=== PATIENT | female | born 1940 | race Caucasian/White ===

== ENCOUNTER 2016-11-14 18:43 | Emergency (ER) | payer MEDICARE, OTHER ==
[~2016-11-14] VITALS: Ht 167.6 cm; Wt 77.0 kg
--- NOTE | 2016-11-14 18:49 | ED.ADGEN ---
Past History Past Medical History: Cancer, Diabetes, Other Adult General Chief Complaint Chief Complaint I been hurting... Down here on the left.. alll day..." HPI HPI Patient is a 76 year old female who presents with above hx and complaints Lt. lower quadrant abd. pain. History of bad food. Normally she did travel. No history of trauma. No change in bowel movements. Patient normally follows with . She is status post right breast cancer treatment 12 years with no recurrence. Review of Systems Review of Systems Constitutional: Denies fever or chills [] Eyes: Denies change in visual acuity, redness, or eye pain [] HENT: Denies nasal congestion or sore throat [] Respiratory: Denies cough or shortness of breath [] Cardiovascular: No additional information not addressed in HPI [] GI: Complains of abdominal pain, nausea, pain localized left lower quadrant : Denies dysuria or hematuria [] Musculoskeletal: Denies back pain or joint pain [] Integument: Denies rash or skin lesions [] Neurologic: Denies headache, focal weakness or sensory changes [] Endocrine: Denies polyuria or polydipsia [] Family History Family History Noncontributory Current Medications Current Medications Current Medications Medications (Trade) Dose Ordered Sig/Ney Start Time Stop Time Status Last Admin Dose Admin Ceftriaxone Sodium/Sodium Chloride (Rocephin/Iv Sodium Chloride 0.9% 50ml) 50 ml @ 100 mls/hr 1X ONCE 11/14/16 21:15 11/14/16 21:44 DC 11/14/16 21:34 100 MLS/HR Ceftriaxone Sodium (Rocephin) 1 gm STK-MED ONCE 11/14/16 21:22 11/14/16 21:23 DC Famotidine (Pepcid) 20 mg 1X ONCE 11/14/16 19:15 11/14/16 19:16 DC 11/14/16 19:22 20 MG Info (Do NOT chart on this entry -- for MONITORING) 1 each PRN DAILY PRN 11/14/16 19:15 11/14/16 22:15 DC Iohexol (Omnipaque 240 Mg/ml) 30 ml 1X ONCE 11/14/16 19:15 11/14/16 19:16 DC 11/14/16 20:40 30 ML Iohexol (Omnipaque 300 Mg/ml) 75 ml 1X ONCE 11/14/16 19:15 11/14/16 19:16 DC 11/14/16 20:41 75 ML Lactated Ringer's (Iv Lactated Ringers) 1,000 ml @ 1,000 mls/hr Q1H 11/14/16 19:00 11/14/16 22:15 DC 11/14/16 19:22 1,000 MLS/HR Levofloxacin (Levaquin) 500 mg 1X ONCE 11/14/16 22:00 11/14/16 22:01 DC 11/14/16 21:59 500 MG Magnesium Hydroxide 2400 mg 2,400 mg 1X ONCE 11/14/16 20:00 11/14/16 20:01 DC 11/14/16 20:00 2,400 MG Morphine Sulfate (Morphine 10mg Syringe) 10 mg 1X ONCE 11/14/16 19:15 11/14/16 19:16 DC 11/14/16 19:17 10 MG Morphine Sulfate 10 mg 10 mg 1X ONCE 11/14/16 21:15 11/14/16 21:16 DC Ondansetron HCl (Zofran) 8 mg 1X ONCE 11/14/16 19:15 11/14/16 19:16 DC 11/14/16 19:19 8 MG Sodium Chloride (Iv Sodium Chloride 0.9% 50ml) 50 ml @ As Directed STK-MED ONCE 11/14/16 21:22 11/14/16 21:23 DC Allergies Allergies Allergies Coded Allergies Type Severity Reaction Last Updated Verified ibuprofen Allergy Unknown 11/14/16 Yes Physical Exam Physical Exam Constitutional: in acute distress, non-toxic appearance. [] HENT: Normocephalic, atraumatic, bilateral external ears normal, oropharynx moist, no oral exudates, nose normal. Dentures Eyes: PERRLA, EOMI, conjunctiva normal, no discharge. Neck: Normal range of motion, no tenderness, supple, no stridor. [] Cardiovascular: Tachycardia Heart rate regular rhythm, no murmur [] Lungs & Thorax: Bilateral breath sounds clear to auscultation Surgery right breast cancer scar. Crackles Lt. lower posterior field. Abdomen: Bowel sounds decreased, soft, floor tenderness, no masses, no pulsatile masses. Very mild left lower rebound. Refused rectal at this time. Skin: Warm, dry, no erythema, no rash. [] Back: No tenderness, no CVA tenderness. [] Extremities: No tenderness, no cyanosis, no clubbing, ROM intact, no edema. No true psoas or obturator Neurologic: Alert and oriented X 3, normal motor function, normal sensory function, no focal deficits noted. [] Psychologic: Affect anxious, judgement normal, mood normal. [] Current Patient Data Vital Signs Vital Signs Date Time Temp Pulse Resp B/P Pulse Ox O2 Delivery O2 Flow Rate FiO2 11/14/16 19:00 98.5 112 20 150/61 96 Room Air Lab Results Laboratory Tests Test 11/14/16 19:07 11/14/16 20:15 White Blood Count 9.9x10^3/uL (4.0-11.0) Red Blood Count 4.58x10^6/uL (3.50-5.40) Hemoglobin 13.6g/dL (12.0-15.5) Hematocrit 40.5% (36.0-47.0) Mean Corpuscular Volume 88fL (79-100) Mean Corpuscular Hemoglobin 30pg (25-35) Mean Corpuscular Hemoglobin Concent 34g/dL (31-37) Red Cell Distribution Width 14.5% (11.5-14.5) Platelet Count 281x10^3/uL (140-400) Neutrophils (%) (Auto) 63% (31-73) Lymphocytes (%) (Auto) 27% (24-48) Monocytes (%) (Auto) 6% (0-9) Eosinophils (%) (Auto) 3% (0-3) Basophils (%) (Auto) 1% (0-3) Neutrophils # (Auto) 6.2x10^3uL (1.8-7.7) Lymphocytes # (Auto) 2.7x10^3/uL (1.0-4.8) Monocytes # (Auto) 0.6x10^3/uL (0.0-1.1) Eosinophils # (Auto) 0.3x10^3/uL (0.0-0.7) Basophils # (Auto) 0.1x10^3/uL (0.0-0.2) Prothrombin Time 10.1SEC (9.4-11.4) Prothrombin Time INR 1.0 (0.9-1.1) PTT 23SEC (23-33) Sodium Level 139mmol/L (136-145) Potassium Level 3.7mmol/L (3.5-5.1) Chloride Level 100mmol/L (98-107) Carbon Dioxide Level 27mmol/L (21-32) Anion Gap 12 (6-14) Blood Urea Nitrogen 32mg/dL (7-20) H Creatinine 1.2mg/dL (0.6-1.0) H Estimated GFR (Cockcroft-Gault) 43.8 Glucose Level 155mg/dL (70-99) H Calcium Level 10.5mg/dL (8.5-10.1) H Total Bilirubin 0.4mg/dL (0.2-1.0) Direct Bilirubin 0.1mg/dL (0.0-0.2) Aspartate Amino Transferase (AST) 19U/L (15-37) Alanine Aminotransferase (ALT) 31U/L (14-59) Alkaline Phosphatase 93U/L (46-116) Creatine Kinase 96U/L (26-192) Troponin I Quantitative < 0.017ng/mL (0-0.055) Total Protein 7.7g/dL (6.4-8.2) Albumin 3.9g/dL (3.4-5.0) Amylase Level 40U/L (25-115) Lipase 149U/L (73-393) Urine Collection Type Unknown Urine Color Yellow Urine Clarity Hazy Urine pH 5.5 Urine Specific Ferdinand 1.010 Urine Protein Neg (NEG-TRACE) Urine Glucose (UA) Negmg/dL (NEG) Urine Ketones (Stick) Negmg/dL (NEG) Urine Blood Neg (NEG) Urine Nitrite Neg (NEG) Urine Bilirubin Neg (NEG) Urine Urobilinogen Dipstick 0.2mg/dL (0.2 mg/dL) Urine Leukocyte Esterase Small (NEG) Urine RBC 0/HPF (0-2) Urine WBC 1-4/HPF (0-4) Urine Squamous Epithelial Cells None/LPF Urine Bacteria 0/HPF (0-FEW) EKG EKG My interpretation EKG shows a sinus tachycardia at 108 bpm. No findings acute STEMI with contralateral changes. [] Radiology/Procedures Radiology/Procedures I interpretation of abdomen film shows increased stool. Nonspecific pattern. No free air in the diaphragm. Has some atelectasis or infiltrate left lower lung field .[] CT shows no acute surgical process. Course & Med Decision Making Course & Med Decision Making Pertinent Labs and Imaging studies reviewed. (See chart for details) Pt. to stay on clear fluid diet only x48 hrs. No solids or milk products. Zofran 8 up 4 x day for nausea and vomiting. Take Levaquin 500 a day x 5 days. Re-exam if no improvement. Must follow up with primary. Return if any concerns. [] Final Impression Final Impression 1. Abdomen pain []-left lower quadrant 2. Elevated Glucose-155 3. Dehydration 4. Elevated creat. and BUN Problems: Dragon Disclaimer Dragon Disclaimer This electronic medical record was generated, in whole or in part, using a voice recognition dictation system. SUSANA LEONARDO MD Nov 14, 2016 18:49
[2016-11-14] MEDS ORDERED: IV RINGERS SOLUTION,LACTATED 1,000 ML IV SCH (19:00)
[2016-11-14] MEDS ORDERED: IOHEXOL 300 MG/ML 75 ML VIAL. IV ONE (19:15)
[2016-11-14] MEDS ORDERED: MORPHINE SULFATE 10 MG/ML SYRINGE. SQ ONE ×3 (19:15→21:15)
[2016-11-14] MEDS ORDERED: ONDANSETRON PF 4 MG/2 ML VIAL. IV ONE (19:15)
[2016-11-14] MEDS ORDERED: IOHEXOL 240 MG/ML 50ML VIAL. PO ONE (19:15)
[2016-11-14] MEDS ORDERED: CONTRAST GIVEN MC PRN (19:15)
[2016-11-14] MEDS ORDERED: FAMOTIDINE 20 MG/2 ML VIAL IVP ONE (19:15)
[2016-11-14 19:27] LABS: BASO # 0.1 x10^3/uL (0.0-0.2); BASO % 1 % (0-3); EOS # 0.3 x10^3/uL (0.0-0.7); EOS % 3 % (0-3); HEMATOCRIT 40.5 % (36.0-47.0); HEMOGLOBIN 13.6 g/dL (12.0-15.5); LYMPH # 2.7 x10^3/uL (1.0-4.8); LYMPH % 27 % (24-48); MEAN CORPUSCULAR HEMOGLOBIN 30 pg (25-35); MEAN CORPUSCULAR HGB CONC 34 g/dL (31-37); MEAN CORPUSCULAR VOLUME 88 fL (79-100); MONO # 0.6 x10^3/uL (0.0-1.1); MONO % 6 % (0-9); NEUT # 6.2 x10^3uL (1.8-7.7); NEUT % 63 % (31-73); PLATELET COUNT 281 x10^3/uL (140-400); RED BLOOD COUNT 4.58 x10^6/uL (3.50-5.40); RED CELL DISTRIBUTION WIDTH 14.5 % (11.5-14.5); WHITE BLOOD COUNT 9.9 x10^3/uL (4.0-11.0)
[2016-11-14 19:38] LABS: ALBUMIN 3.9 g/dL (3.4-5.0); CALCIUM 10.5 mg/dL (8.5-10.1); CREATININE 1.2 mg/dL (0.6-1.0); DIRECT BILIRUBIN 0.1 mg/dL (0.0-0.2); GFR 43.8; POTASSIUM 3.7 mmol/L (3.5-5.1); TOTAL BILIRUBIN 0.4 mg/dL (0.2-1.0); TOTAL PROTEIN 7.7 g/dL (6.4-8.2)
[2016-11-14] MEDS ORDERED: MAGNESIUM HYDROXIDE 2,400 MG/30 ML ORAL.SUSP. PO ONE (20:00)
[2016-11-14 20:34] LABS: BACTERIA,URINE 0 /HPF (0-FEW); BILIRUBIN,URINE NEG (NEG); CLARITY,URINE HAZY; COLOR,URINE YELLOW; GLUCOSE,URINE NEG (NEG); NITRITE,URINE NEG (NEG); RBC,URINE 0 /HPF (0-2); UROBILINOGEN,URINE 0.2 mg/dL (0.2 mg/dL)
[2016-11-14] MEDS ORDERED: CEFTRIAXONE SODIUM 1 GM in IV NORMAL SALINE 50ML 50 ML IV ONE (21:15)
[2016-11-14] MEDS ORDERED: CEFTRIAXONE SODIUM 1 GM VIAL IV ONE (21:22)
[2016-11-14] MEDS ORDERED: IV NORMAL SALINE 50ML 50 ML ONE (21:22)
--- NOTE | 2016-11-14 21:23 | RAD ---
PROCEDURE CT abdomen pelvis with contrast. HISTORY Severe left-sided abdominal pain and constipation x2 days. History of breast cancer in 2004. TECHNIQUE Helical CT imaging of the abdomen and pelvis is performed after oral contrast and 60 cc Omnipaque 300 IV contrast. PQRS: One or more the following individualized dose reduction techniques were utilized for the study: 1. Automated exposure control. 2. Adjustment of the mA and/or kV according to patient size. 3. Use of iterative reconstruction technique. COMPARISON None. FINDINGS There is moderate atelectasis or scarring in the lung bases. There are coarse calcifications in the right breast. There is coronary artery disease. Cardiac size normal. Liver, gallbladder, spleen, pancreas, and adrenal glands are normal. Kidneys enhance symmetrically without hydronephrosis. Cortical hypodensity of the right kidney, too small to further characterize. Atherosclerotic abdominal aorta. There are bilateral kissing common iliac artery stents in the distal abdominal aorta and common iliac arteries. Stomach unremarkable. No dilated small bowel. The appendix is normal. Scattered stool in the colon. No colon wall thickening is seen. No abdominal adenopathy or free fluid. Urinary bladder is normal. Atrophic uterus. No pelvic free fluid. There is grade 1 anterolisthesis of L4 on L5. Vacuum disc phenomenon L4/L5 and L5/S1 with disc space narrowing. IMPRESSION 1. No acute abdominal or pelvic abnormality. 2. Moderate atelectasis or scarring in the lung bases. Electronically signed by: Brent Thomas MD (Nov 14, 2016 21:22:24)
[2016-11-14] MEDS ORDERED: MAGN2400 PO (21:50)
[2016-11-14] MEDS ORDERED: HYDR1TAB12 PO (21:50)
[2016-11-14] MEDS ORDERED: LEVO500T38 PO (21:50)
[2016-11-14 21:55] VITALS: BP 122/60
[2016-11-14] MEDS ORDERED: LEVOFLOXACIN 500 MG TABLET PO ONE (22:00)
--- NOTE | 2016-11-15 08:35 | RAD ---
Acute abdominal series to include a PA chest radiograph 11/14/2016 Clinical History: Severe left-sided abdominal pain for 2 days. A PA digital radiograph of the chest was obtained. Supine and erect AP digital radiographs of the abdomen/pelvis were obtained. Comparison study is dated 08/17/2016. The cardiac silhouette is normal in size. The thoracic aorta is mildly tortuous. Atherosclerotic calcification of the thoracic aorta is seen. Surgical clips overlie the right axilla. The patient is status post right shoulder joint replacement. Patchy left lower lobe subsegmental atelectasis and/or infiltrate is seen. No pneumothorax or pleural effusion is noted. The abdominal bowel gas pattern is nonobstructive. A moderate amount of stool is seen throughout the colon. No radiopaque calculus is seen. Degenerative changes are seen involving the thoracic and lumbar spine and both hips. Atherosclerotic calcification of the abdominal aorta and its branches is noted. Stents overlie the common iliac arteries. Impression: 1. Patchy left lower lobe subsegmental atelectasis and/or infiltrate. 2. Nonobstructive bowel gas pattern.
--- NOTE | 2016-11-15 10:43 | EKG ---
[address] [address] Test Date: 2016-11-14 Test Time: 19:10:23 Pat Name: SILAS QUEZADA Department: Room: Gender: F Senior Director Of Strategy: NO : 1940 Requested By: SUSANA LEONARDO Order Number: [id number] Reading MD: Measurements Intervals [place] Rate: 108 P: 3 VA: 116 QRS: 45 QRSD: 80 T: 46 QT: 312 QTc: 422 Interpretive Statements SINUS TACHYCARDIA NO SPECIFIC ECG ABNORMALITIES RI6.01 Unconfirmed report No previous ECG available for comparison
== END 2016-11-14 21:51 | disposition home or self-care (01) ==
LOC: ER 18:43
DX: R10.32 Left lower quadrant pain (principal); R73.02 Impaired glucose tolerance (oral); E86.0 Dehydration; R79.89 Other specified abnormal findings of blood chemistry; E11.9 Type 2 diabetes mellitus without complications; Z88.6 Allergy status to analgesic agent
CPT/HCPCS: 36415; 74022; 74177; 80048; 80076; 81001; 82150; 82550; 83690; 84484; 85027; 85610; 85730; 87086; 93005; 96361; 96365; 96372; 96375; 99285; J0696; J2270; J2405; J7120; Q9966; Q9967; S0028

== ENCOUNTER → 2017-03-17 | Outpatient (CLI) | payer MEDICARE, OTHER ==
[~2017-03-17] MED LIST: HYDR1TAB12 PO; LEVO500T59 PO; MAGN2400 PO
--- NOTE | 2017-03-17 15:51 | RAD ---
Indication low back pain. Lateral flexion and extension views of the lumbar spine were obtained. No prior imaging of the lumbar spine is available. There is mild anterior spondylolisthesis of L4 relative to L5 which does not change appreciably in flexion or extension. There are facet degenerative changes most pronounced at L4-5 and L5-S1. Multilevel mild disc space narrowing is noted. There is slight wedging of lower thoracic vertebral body segments, the chronicity of which is not certain. IMPRESSION: Spondylitic changes. Mild spondylolisthesis at L4-5. No abnormal movement seen with flexion and extension.
== END | disposition home or self-care (01) ==
LOC: DXRADRC 14:21
PROVIDERS: ATTEND Neurological Surgery
DX: M47.26 Other spondylosis with radiculopathy, lumbar region (principal); M43.16 Spondylolisthesis, lumbar region
CPT/HCPCS: 72100

== ENCOUNTER → 2017-04-25 | Outpatient (CLI) | payer MEDICARE, OTHER ==
--- NOTE | 2017-04-25 11:16 | RAD ---
DATE: 04/25/2017 EXAM: MAMMO JASON SCREENING BILATERAL HISTORY: Screening. The history of right breast malignancy with subsequent lumpectomy and radiation is noted. COMPARISON: One year earlier This study was interpreted with the benefit of Computerized Aided Detection (CAD). FINDINGS: Breast Density: HETERO The breast parenchyma Is heterogeneiously dense, which could reduce sensitivity of mammography. Breast parenchyma level C. There is not been a significant change in the appearance of the breasts relative to the previous exam. Post therapeutic changes are noted in the right breast. IMPRESSION: Benign findings BI-RADS CATEGORY: 2 BENIGN FINDING(S) RECOMMENDED FOLLOW-UP: 12M 12 MONTH FOLLOW-UP PQRS compliance statement: Patient information was entered into a reminder system with a target due date 04/25/2018 for the next mammogram. Mammography is a sensitive method for finding small breast cancers, but it does not detect them all and is not a substitute for careful clinical examination. A negative mammogram does not negate a clinically suspicious finding and should not result in delay in biopsying a clinically suspicious abnormality. "Our facility is accredited by the [employer] Mammography Program."
== END | disposition home or self-care (01) ==
LOC: MAMMO 09:13
PROVIDERS: ATTEND Physician Assistant Medical
DX: Z12.31 Encounter for screening mammogram for malignant neoplasm of breast (principal); Z85.3 Personal history of malignant neoplasm of breast; Z98.890 Other specified postprocedural states
CPT/HCPCS: 77063; G0202; 77067

== ENCOUNTER → 2017-05-12 | Outpatient (CLI) | payer MEDICARE, OTHER ==
--- NOTE | 2017-05-12 16:29 | RAD ---
LUMBAR SPINE 2-3V Clinical Indication: LOW BACK PAIN W RADIATING RT LEG PAIN, SX 05/02/17, FALL 05/08/17 Comparison: Lumbar spine radiographs dated 03/17/2017 Findings: There are 5 nonrib-bearing lumbar-type vertebral bodies. Interval L4-L5 posterior fusion and interbody disc spacer placement. Improvement in L4-L5 anterolisthesis with now 0.3 cm anterolisthesis, previously 0.6 cm. No evidence of hardware failure. Vertebral body heights are maintained. Mild multilevel degenerative changes of the visualized spine. Redemonstration of kissing iliac vascular stents. IMPRESSION: 1. No acute fracture or malalignment. 2. Interval L4-L5 posterior fusion and interbody disc spacer placement. No evidence of hardware failure. Improved L4-L5 anterolisthesis.
== END | disposition home or self-care (01) ==
LOC: DXRADRC 14:09
PROVIDERS: ATTEND Neurological Surgery
DX: M47.896 Other spondylosis, lumbar region (principal); W19.XXXA Unspecified fall, initial encounter; Y93.89 Activity, other specified; Y92.89 Other specified places as the place of occurrence of the external cause; Y99.8 Other external cause status
CPT/HCPCS: 72100

== ENCOUNTER → 2017-05-17 | Outpatient (CLI) | payer MEDICARE, OTHER ==
--- NOTE | 2017-05-17 11:32 | RAD ---
Indication right knee pain for a week. Fall. AP oblique and lateral views of the right knee were obtained. Views were obtained with the patient standing. There is a total knee replacement. No acute finding is seen. There is no evidence of complication associated with the orthopedic hardware. Joint effusion is noted. IMPRESSION: No acute bony finding. Joint effusion
--- NOTE | 2017-05-17 11:54 | RAD ---
Indication right leg pain secondary to a fall. An AP view of the pelvis was obtained as well as frog-leg view targeted to the right hip. There are some degenerative changes involving the hips. No acute bony finding is seen. Postoperative changes in the lower lumbar spine are noted. IMPRESSION: No acute bony finding
== END | disposition home or self-care (01) ==
LOC: DXRADRC 11:09
PROVIDERS: ATTEND Physician Assistant Medical
DX: M16.0 Bilateral primary osteoarthritis of hip (principal); M25.461 Effusion, right knee; W19.XXXA Unspecified fall, initial encounter; Z96.651 Presence of right artificial knee joint; Z98.890 Other specified postprocedural states; Y93.89 Activity, other specified; Y92.89 Other specified places as the place of occurrence of the external cause; Y99.8 Other external cause status
CPT/HCPCS: 73501; 73562

== ENCOUNTER → 2017-06-13 | Outpatient (CLI) | payer MEDICARE, OTHER ==
--- NOTE | 2017-06-13 16:14 | RAD ---
EXAM: Lumbar spine 2 views. HISTORY: Lumbar fusion. COMPARISON: 05/12/2017. FINDINGS: Instrumented anterior and posterior fusion changes are noted at L4-5. Bilateral pedicle screws are fixed by vertical rods at each level. There is also discectomy and interbody grafting. Vertebral body heights are maintained, and no fractures are identified. Degenerative disc disease is severe at L5-S1, moderate at L1-2, and mild from L2 through L4. There is slight grade 1 anterolisthesis at L4-5. There is a minimal upper lumbar levocurvature. Atherosclerotic calcifications are noted. Stents are noted in both common iliac arteries. IMPRESSION: 1. L4-5 instrumented anterior and posterior fusion. 2. Degenerative disc disease is severe at L5-S1, moderate at L1-2 and mild from L2 through L4. It is also at least moderate within the lower thoracic spine.
== END | disposition home or self-care (01) ==
LOC: DXRAD 10:44
PROVIDERS: ATTEND Neurological Surgery
DX: M51.37 Other intervertebral disc degeneration, lumbosacral region (principal); M51.34 Other intervertebral disc degeneration, thoracic region; M43.26 Fusion of spine, lumbar region; Z98.890 Other specified postprocedural states
CPT/HCPCS: 72100

== ENCOUNTER → 2017-07-21 | Outpatient (CLI) | payer MEDICARE, OTHER ==
--- NOTE | 2017-07-21 12:18 | RAD ---
Lumbar spine, 2 views, 07/21/2017: History: Low back pain Comparison is made to a study from 06/13/2017. There are bilateral pedicle screws at L4 and L5 attached to longitudinally oriented posterior fixation rods. A partially radiopaque disc spacer is present at L4-5. There is slight unchanged anterolisthesis of L4 relative to L5. There is moderate disc space narrowing and spurring at L5-S1. There are mild scattered spurs in the upper lumbar spine. No acute fracture is identified. There is extensive aortoiliac calcific plaquing. Arterial stents are present at the common iliac artery levels bilaterally. IMPRESSION: 1. Stable postsurgical findings in the lower lumbar spine. 2. Moderate multilevel degenerative change with slight unchanged anterolisthesis at L4-5. 3. No new lumbar spine abnormality is detected.
== END | disposition home or self-care (01) ==
LOC: DXRAD 11:55
PROVIDERS: ATTEND Neurological Surgery
DX: M47.896 Other spondylosis, lumbar region (principal); M43.16 Spondylolisthesis, lumbar region; Z98.890 Other specified postprocedural states
CPT/HCPCS: 72100

== ENCOUNTER → 2017-08-14 | Outpatient (CLI) | payer MEDICARE, OTHER ==
--- NOTE | 2017-08-14 16:13 | RAD ---
Three-view left foot radiographs 08/14/2017 Clinical history: Left foot pain. AP, lateral and oblique digital radiographs of the left foot were obtained. No fracture or dislocation of the left foot is seen. Mild degenerative changes are seen scattered throughout the interphalangeal joints of the left foot. Mild to moderate degenerative changes are seen involving the first MTP joint. Mild enthesophyte formation is seen involving the plantar aspect of the posterior left calcaneus. Impression: Degenerative changes are seen involving the left foot as outlined above. No acute osseous abnormality is seen.
== END | disposition home or self-care (01) ==
LOC: PMG 10:37
PROVIDERS: ATTEND Physician Assistant Medical
DX: M19.072 Primary osteoarthritis, left ankle and foot (principal); E11.9 Type 2 diabetes mellitus without complications
CPT/HCPCS: 73630

== ENCOUNTER → 2017-09-15 | Outpatient (CLI) | payer MEDICARE, OTHER ==
--- NOTE | 2017-09-15 15:26 | RAD ---
Lumbar spine, 3 views, 09/15/2017: History: Chronic low back pain Comparison is made to a study from 07/21/2017. There is a minimal lumbar scoliosis. Bilateral pedicle screws remain in place at L4 and L5 attached to longitudinally oriented posterior fixation rods. A radiopaque disc spacer is present at L4-5. Slight anterolisthesis at L4-5 is unchanged. The lumbar vertebral heights are well-maintained. There is mild disc space narrowing throughout the lumbar spine. There is moderate disc space narrowing at L5-S1 and mild disc space narrowing throughout the remainder of the lumbar spine with moderate scattered marginal spurs. Aortoiliac calcific plaquing is present with bilateral common iliac artery stents in place. IMPRESSION: 1. Stable postsurgical changes at L4-5. 2. Moderate multilevel degenerative change. 3. No acute lumbar spine abnormality is detected.
== END | disposition home or self-care (01) ==
LOC: RAD 13:09
PROVIDERS: ATTEND Physician Assistant Medical
DX: M47.896 Other spondylosis, lumbar region (principal); Z98.890 Other specified postprocedural states
CPT/HCPCS: 72100

== ENCOUNTER → 2018-01-13 | Outpatient (CLI) | payer MEDICARE, OTHER ==
--- NOTE | 2018-01-13 10:01 | RAD ---
CT of the head without contrast, 01/13/2018: HISTORY: Headache, dizziness There is moderate cerebral atrophy. The ventricles are within normal limits in size. There is no shift of the midline structures. There is no evidence of acute intracranial hemorrhage or mass effect. IMPRESSION: 1. Cerebral atrophy. 2. No acute intracranial abnormality is detected. Electronically signed by: Chencho Reddy MD (01/13/2018 9:57 AM) [facility]
== END | disposition home or self-care (01) ==
LOC: RAD 09:19
PROVIDERS: ATTEND Family Medicine
DX: G31.9 Degenerative disease of nervous system, unspecified (principal)
CPT/HCPCS: 70450

== ENCOUNTER → 2018-04-27 | Outpatient (CLI) | payer MEDICARE, OTHER ==
--- NOTE | 2018-04-27 12:39 | RAD ---
DATE: 04/27/2018 EXAM: DIGITAL SCREEN BILAT W/CAD HISTORY: Remote right breast cancer COMPARISON: 04/25/2017 This study was interpreted with the benefit of Computerized Aided Detection (CAD). Breast Density: HETERO The breast parenchyma is heterogenously dense, which could reduce sensitivity of mammography. Breast parenchyma level C. FINDINGS: There is architectural distortion in the right breast with extensive dystrophic type calcifications. These findings are unchanged and are compatible with previous surgery and radiation therapy. There are surgical clips superiorly in the right breast and in the right axilla. No new or enlarging breast densities are seen. No suspicious microcalcifications are evident. IMPRESSION: Stable mammograms without evidence of malignancy. BI-RADS CATEGORY: 2 BENIGN FINDING(S) RECOMMENDED FOLLOW-UP: 12M 12 MONTH FOLLOW-UP PQRS compliance statement: Patient information was entered into a reminder system with a target due date for the next mammogram. Mammography is a sensitive method for finding small breast cancers, but it does not detect them all and is not a substitute for careful clinical examination. A negative mammogram does not negate a clinically suspicious finding and should not result in delay in biopsying a clinically suspicious abnormality. "Our facility is accredited by the [employer] Mammography Program."
== END | disposition home or self-care (01) ==
LOC: MAMMO 10:01
PROVIDERS: ATTEND Physician Assistant Medical
DX: Z12.31 Encounter for screening mammogram for malignant neoplasm of breast (principal); M16.0 Bilateral primary osteoarthritis of hip; E11.9 Type 2 diabetes mellitus without complications; M19.072 Primary osteoarthritis, left ankle and foot; Z85.3 Personal history of malignant neoplasm of breast; Z88.6 Allergy status to analgesic agent
CPT/HCPCS: 77067

== ENCOUNTER → 2019-04-29 | Outpatient (CLI) | payer MEDICARE, OTHER ==
[~2019-04-29] MED LIST changes: -HYDR1TAB12 PO; +HYDR1TAB13 PO
--- NOTE | 2019-04-29 15:14 | RAD ---
DATE: 04/29/2019 EXAM: DIGITAL SCREEN BILAT W/CAD HISTORY: Routine screening. Right breast malignancy diagnosed in 2004. COMPARISON: 04/21/2015, 04/22/2016, 04/27/2018 mammographic exams This study was interpreted with the benefit of Computerized Aided Detection (CAD). Breast Density: SCATTERED The breast parenchyma shows scattered fibroglandular densities. Breast parenchyma level B. FINDINGS: Dystrophic calcifications involving the right breast noted. Surgical clips involve the right upper breast. No suspicious calcifications or distortion in the interval. Question of asymmetry is present involving the posterior left outer breast. Is recommended.: Asymmetry the posterior left outer breast. BI-RADS CATEGORY: 0 INCOMPLETE: NEEDS ADDITIONAL IMAGING EVALUATION AND/OR PRIOR MAMMOGRAMS FOR COMPARISON.Spot compression imaging is recommended. Ultrasound may be needed. RECOMMENDED FOLLOW-UP: ADD ADDITIONAL IMAGING. Spot compression imaging is recommended. Ultrasound may be needed. PQRS compliance statement: Patient information was entered into a reminder system with a target due date now for the next mammogram. Mammography is a sensitive method for finding small breast cancers, but it does not detect them all and is not a substitute for careful clinical examination. A negative mammogram does not negate a clinically suspicious finding and should not result in delay in biopsying a clinically suspicious abnormality. "Our facility is accredited by the [employer] Mammography Program."
== END | disposition home or self-care (01) ==
LOC: MAMMO 10:46
PROVIDERS: ATTEND Physician Assistant Medical
DX: Z12.31 Encounter for screening mammogram for malignant neoplasm of breast (principal); N64.89 Other specified disorders of breast
CPT/HCPCS: 77067

== ENCOUNTER → 2019-05-01 | Outpatient (CLI) | payer MEDICARE, OTHER ==
--- NOTE | 2019-05-01 13:30 | RAD ---
DATE: 05/01/2019 EXAM: DIGITAL DIAGNOSTIC LT HISTORY: Abnormal mammogram COMPARISON: 04/25/2018, 04/27/2018, and 04/29/2019 mammographic exams This study was interpreted with the benefit of Computerized Aided Detection (CAD). Breast Density: SCATTERED The breast parenchyma shows scattered fibroglandular densities. Breast parenchyma level B. FINDINGS: Upon spot compression imaging of the posterior left outer breast, there is no persistent or suspicious asymmetry. No suspicious findings on the mediolateral view either. IMPRESSION: Benign. BI-RADS CATEGORY: 1 NEGATIVE RECOMMENDED FOLLOW-UP: 12M 12 MONTH FOLLOW-UP PQRS compliance statement: Patient information was entered into a reminder system with a target due date in one year for the next mammogram. Mammography is a sensitive method for finding small breast cancers, but it does not detect them all and is not a substitute for careful clinical examination. A negative mammogram does not negate a clinically suspicious finding and should not result in delay in biopsying a clinically suspicious abnormality. "Our facility is accredited by the [employer] Mammography Program."
== END | disposition home or self-care (01) ==
LOC: MAMMO 12:55
PROVIDERS: ATTEND Physician Assistant Medical
DX: R92.2 Inconclusive mammogram (principal)
CPT/HCPCS: 77065

== ENCOUNTER → 2019-08-05 | Outpatient (CLI) | payer MEDICARE, OTHER ==
--- NOTE | 2019-08-05 14:51 | RAD ---
KNEE RIGHT 3V DATE: 08/05/2019 12:00 AM INDICATION: Knee pain COMPARISON: 05/17/2017 FINDINGS/ IMPRESSION: No acute osseous abnormality. Right total knee arthroplasty. Surgical hardware is intact. No perihardware lucency. Electronically signed by: Oren Bravo MD (08/05/2019 2:48 PM) [id number]
== END | disposition home or self-care (01) ==
LOC: PMG 12:06
PROVIDERS: ATTEND Physician Assistant Medical
DX: M25.561 Pain in right knee (principal); Z96.651 Presence of right artificial knee joint
CPT/HCPCS: 73562

== ENCOUNTER → 2020-02-21 | Outpatient (CLI) | payer MEDICARE, OTHER ==
[~2020-02-21] MED LIST changes: -MAGN2400 PO; +MAGN24003 PO
--- NOTE | 2020-02-21 14:21 | RAD ---
Exam:Right ribs with PA chest Date: 02/21/2020 12:00 AM Comparison: No prior Indication: CHEST WALL PAIN Findings/ Impression: The heart is not enlarged. Aortic calcifications are seen. No focal parenchymal airspace opacity. No pleural effusion or pneumothorax. Right breast calcifications are seen. 8 mm nodular opacity left lower lung can be further assessed by nonemergent CT. AP, Oblique and Spot images of the right ribs are negative for acute displaced rib fracture. Negative focal pleural elevation. Symmetrical intercostal spacing. It is of note that an acute non-displaced rib fracture can be in-apparent on initial post-trauma imaging. Electronically signed by: Matt Prado MD (02/21/2020 2:18 PM) [id number]
== END | disposition home or self-care (01) ==
LOC: DXRAD 12:41
PROVIDERS: ATTEND Physician Assistant Medical
DX: I70.0 Atherosclerosis of aorta (principal); R92.1 Mammographic calcification found on diagnostic imaging of breast
CPT/HCPCS: 71101

== ENCOUNTER → 2020-02-26 | Outpatient (CLI) | payer MEDICARE, OTHER ==
--- NOTE | 2020-02-26 09:22 | RAD ---
Examination: Ultrasound abdomen limited HISTORY: History of right upper quadrant abdominal pain COMPARISON: 08/23/2016 FINDINGS: The liver length measures 14.3 cm. The common bile duct measures 2.7 mm in diameter. There is increased echogenicity identified throughout the liver likely hepatic steatosis. The visualized pancreas grossly appears unremarkable. The gallbladder wall thickness measures 1.5 mm. The right kidney measures 9.6 cm in length. The IVC is not well-visualized due to bowel gas. IMPRESSION: 1. Hepatic steatosis. 2. No evidence of gallstones. Electronically signed by: Chi Wiggins MD (02/26/2020 9:20 AM) [id number]
== END | disposition home or self-care (01) ==
LOC: US 08:38
PROVIDERS: ATTEND Physician Assistant Medical
DX: K76.0 Fatty (change of) liver, not elsewhere classified (principal)
CPT/HCPCS: 76705

== ENCOUNTER → 2020-04-30 | Outpatient (CLI) | payer MEDICARE, OTHER ==
--- NOTE | 2020-04-30 10:37 | RAD ---
BILATERAL SCREENING MAMMOGRAM History: Routine screening. Right lumpectomy in 2004. Comparison: 04/23/2014, 04/21/2015, 04/22/2016, 04/25/2017, 04/27/2018, 04/29/2019. Technique: Routine bilateral digital mammogram views were obtained. Findings: Breast Tissue Density B : There are scattered areas of fibroglandular density. There are no dominant masses, suspicious microcalcifications, or new architectural distortion. Right lumpectomy findings are stable. Surgical clips and dystrophic calcifications again seen. IMPRESSION: No mammographic evidence of malignancy. Recommend routine screening. BI-RADS category 1: Negative. The images were reviewed with computer aided detection. Patient information is entered into the reminder system with a target due date for the next screening mammogram. Mammography is the most sensitive method for finding small breast cancers, but it does not detect them all and is not a substitute for careful clinical examination. A negative mammogram does not negate a clinically suspicious finding and should not result in delay in biopsying a clinically suspicious abnormality. "Our facility is accredited by the [employer] Mammography [employer]." Electronically signed by: Alberto Ha MD (04/30/2020 10:34 AM) [facility]
== END | disposition home or self-care (01) ==
LOC: MAMMO 09:18
PROVIDERS: ATTEND Physician Assistant Medical
DX: Z12.31 Encounter for screening mammogram for malignant neoplasm of breast (principal); N64.89 Other specified disorders of breast
CPT/HCPCS: 77067

== ENCOUNTER → 2020-06-11 | Outpatient (CLI) | payer MEDICARE, OTHER ==
--- NOTE | 2020-06-11 14:25 | RAD ---
EXAM: Chest CT without intravenous contrast. HISTORY: Chest pain. TECHNIQUE: Computed tomographic images of the chest were obtained without contrast. Multiplanar reformatting was performed. *One or more of the following individualized dose reduction techniques were utilized for this examination: 1. Automated exposure control. 2. Adjustment of the mA and/or kV according to patient size. 3. Use of iterative reconstruction technique. COMPARISON: None. FINDINGS: The heart is normal in size. There is calcified atherosclerotic plaque involving the aorta and coronary arteries. There is calcification of the aortic valve. There are nonspecific mediastinal and hilar lymph nodes. These are not pathologically enlarged. There are postoperative changes involving the right breast and right axilla. There is pulmonary emphysema. There is mild posterior dependent and basilar atelectasis. There is a 3 mm groundglass pleural-based opacity within the posterior medial right lower lobe, likely due to subsegmental atelectasis. There is no convincing suspicious nodule. There is no infiltrate. There is no acute finding involving the upper abdomen or osseous structures. There is multilevel degenerative change throughout the thoracic spine. IMPRESSION: 1. No acute thoracic finding. 2. Mild pulmonary emphysema. Electronically signed by: Radha Lim MD (06/11/2020 2:23 PM) [id number]
== END ==
LOC: CT 12:41
PROVIDERS: ATTEND Physician Assistant Medical
DX: J43.8 Other emphysema (principal); J98.11 Atelectasis; I25.10 Atherosclerotic heart disease of native coronary artery without angina pectoris; I70.0 Atherosclerosis of aorta; M47.814 Spondylosis without myelopathy or radiculopathy, thoracic region
CPT/HCPCS: 71250

== ENCOUNTER → 2021-02-16 | Outpatient (CLI) | payer MEDICARE, OTHER ==
--- NOTE | 2021-02-16 16:54 | RAD ---
XR ELBOW_RIGHT History: Right elbow pain status post injury. Comparison: None. Technique: AP and lateral views of the right elbow. Findings: Osseous mineralization is normal. No fracture or dislocaton. Dystrophic calcifications project radial aspect of the olecranon. Small ulnar osteophytes. No joint effusion. Impression: 1. Dystrophic calcifications at the external aspect of the olecranon are favored to be extra-articul ar may represent sequela of bursitis. Osteochondral bodies are thought to be less likely. Electronically signed by: Titus Farah MD (02/16/2021 4:52 PM) [facility]
== END ==
LOC: RAD 11:15
PROVIDERS: ATTEND Physician Assistant Medical
DX: S59.901A Unspecified injury of right elbow, initial encounter (principal); M25.721 Osteophyte, right elbow; M25.821 Other specified joint disorders, right elbow; X58.XXXA Exposure to other specified factors, initial encounter; Y93.89 Activity, other specified; Y92.89 Other specified places as the place of occurrence of the external cause; Y99.8 Other external cause status
CPT/HCPCS: 73070

== ENCOUNTER → 2021-05-03 | Outpatient (CLI) | payer MEDICARE, OTHER ==
--- NOTE | 2021-05-07 18:36 | RAD ---
DATE: 05/03/2021 EXAM: DIGITAL SCREEN BILAT W/CAD HISTORY: Screening COMPARISON: Prior exams dating back to 2017 This study was interpreted with the benefit of Computerized Aided Detection (CAD). Breast Density: SCATTERED The breast parenchyma shows scattered fibroglandular densities. Breast parenchyma level B. FINDINGS: Post lumpectomy changes in the upper right breast with dystrophic calcifications, architectural distortion, and surgical clips are stable. No suspicious mass, suspicious calcifications, or new architectural distortion. There are surgical clips in the right axilla. IMPRESSION: Stable mammogram with no imaging evidence of malignancy. BI-RADS CATEGORY: 2 BENIGN FINDING(S) RECOMMENDED FOLLOW-UP: 12M 12 MONTH FOLLOW-UP PQRS compliance statement: Patient information was entered into a reminder system with a target due date for the next mammogram. Mammography is a sensitive method for finding small breast cancers, but it does not detect them all and is not a substitute for careful clinical examination. A negative mammogram does not negate a clinically suspicious finding and should not result in delay in biopsying a clinically suspicious abnormality. "Our facility is accredited by the [employer] Mammography [employer]."
== END ==
LOC: MAMMO 11:14
PROVIDERS: ATTEND Physician Assistant Medical
DX: Z12.31 Encounter for screening mammogram for malignant neoplasm of breast (principal)
CPT/HCPCS: 77067

== ENCOUNTER → 2021-12-09 | Outpatient (CLI) | payer MEDICARE, OTHER ==
--- NOTE | 2021-12-09 09:18 | RAD ---
EXAM: CT Abdomen and Pelvis without IV contrast CLINICAL HISTORY: Reason: HEMATURIA COMPARISON: none TECHNIQUE: Helical CT of the abdomen and pelvis without intravenous contrast. Axial, coronal and sagi ttal reformatted images were generated. PQRS compliance statement - One or more of the following individualized dose reduction techniques wer e utilized for this study: 1. Automated exposure control 2. Adjustment of the mA and/or kV according to patient size 3. Use of iterative reconstruction technique FINDINGS: Lack of intravenous contrast limits evaluation of solid organs, vasculature, and lymph nodes. Lower chest: Platelike opacity anterior left lower lobe likely scarring or atelectasis. Mitral annular microcalcif ications. Abdomen and Pelvis: Liver, spleen, adrenal glands, pancreas and gallbladder are normal. No biliary ductal dilatation. No focal renal lesion. No hydronephrosis. No hydroureter. Bladder is unremarkable. Appendix is normal. Moderate colonic stool content is seen. No small or large bowel dilatation. Aorto biiliac and main branch atherosclerotic calcifications are seen. No abdominal or pelvic lymphadenopathy. No abdominal or pelvic ascites. Hip joint degenerative changes. Lower lumbar spine degenerative changes. Degenerative changes of spin e are seen. Rightward curvature lumbar spine apex L2. IMPRESSION: 1. No renal tract calculus. 2. Within the constraints of this noncontrast examination, no focal renal lesion. 3. Moderate colonic stool content. No bowel obstruction. Electronically signed by: Matt Prado MD (12/09/2021 9:16 AM) [id number]
== END ==
LOC: CT 08:15
PROVIDERS: ATTEND Family Medicine
DX: I34.0 Nonrheumatic mitral (valve) insufficiency (principal); I70.8 Atherosclerosis of other arteries; M16.0 Bilateral primary osteoarthritis of hip; K56.41 Fecal impaction; R31.9 Hematuria, unspecified; M47.816 Spondylosis without myelopathy or radiculopathy, lumbar region; M43.8X6 Other specified deforming dorsopathies, lumbar region
CPT/HCPCS: 74176